=== PATIENT | male | born 1970 ===

== ENCOUNTER 2025-01-05 06:00 | Day surgery (SDC) | payer OTHER ==
[2025-01-02 11:26] LABS: BASO % 0.6 % (0.1-1.2); EOS # 0.06 (0.04-0.54); EOS % 1.0 % (0.7-7.0); LYMPH # 1.91 (1.18-3.74); LYMPH % 30.6 % (19.3-53.1); MEAN PLATELET VOLUME 9.60 fl (9.4-12.4); MONO # 0.53 (0.24-0.82); MONO % 8.5 % (4.7-12.5); NEUT # 3.68 (1.56-6.13); NEUT % 59.0 % (34.0-71.1); RED CELL DISTRIBUTION WIDTH 12.3 % (11.6-14.4)
[2025-01-02 11:27] LABS: URINE APPEARANCE Clear; URINE BILIRRUBIN Negative (NEGATIVE); URINE BLOOD Negative; URINE COLOR Yellow; URINE KETONE Negative (NEGATIVE); URINE LEUKOCYTE Negative; URINE NITRATE Negative; URINE PROTEIN Negative (NEGATIVE); URINE UROBILINOGEN 0.2 E.U./dl
[2025-01-02 11:30] LABS: URINE BACTERIA 10.7 uL (0.0-1933); URINE EPITHELIAL CELLS 2.3 uL (0.0-38.8); URINE RBC 2.6 uL (0.0-20.8)
[2025-01-02 11:39] LABS: URINE CAST 0.00 uL (0.0-1.40); URINE GLUCOSE >=1000 MG/DL (NEGATIVE); URINE WBC 1.6 uL (0.0-23.2)
[2025-01-02 11:50] LABS: INR 0.99
[2025-01-02 12:08] LABS: BUN CREA RATIO 15.0 (7.0-25.0); CREATININE SERUM 0.94 mg/dL (0.70-1.30); GFR 83.02; GLUCOSE FASTING 114.0 mg/dL (65-100); OSMOLALITY SERUM 286.0 MOSM/KG (275-295)
[~2025-01-05 06:00] MED LIST: AMLODIPINE BESYL5 MG PO; ATACAND HCT 321 EAC1 PO; ATORVASTATIN CA10 MG PO; TADALAFIL10 MG PO; TRIJARDY XR 251 EACH PO; ZETIA10 MG PO
[2025-01-05] MEDS ORDERED: CEFAZOLIN SODIUM 1,000 MG VIAL ONE ×2 (07:05→07:15)
[2025-01-05] MEDS ORDERED: BUPIVACAINE HCL/MPF 0.5% 30ML VIAL ONE (07:14)
[2025-01-05] MEDS ORDERED: TRAMADOL HCL50 MG PO (07:52)
[2025-01-05] MEDS ORDERED: MIRALAX17 GM PO (07:52)
[2025-01-05] MEDS ORDERED: KETO10TA2 PO (07:52)
[2025-01-05] MEDS ORDERED: TYLENOL ARTHRI650 MG PO (07:52)
[2025-01-05] MEDS ORDERED: CEFAZOLIN SODIUM 1,000 MG VIAL IV ONE (08:15)
[2025-01-05] MEDS ORDERED: SUGAMMADEX SODIUM 200 MG/2 ML VIAL IV ONE ×2 (08:17→09:00)
[2025-01-05] MEDS ORDERED: BUPIVACAINE HCL 30 ML VIAL IJ ONE (08:30)
[2025-01-05] MEDS ORDERED: KETOROLAC TROMETHAMINE 30 MG VIAL ONE (08:44)
[2025-01-05] MEDS ORDERED: KETOROLAC TROMETHAMINE 30 MG VIAL IM ONE (09:00)
[2025-01-05] MEDS ORDERED: NEURONTIN300 MG PO (09:09)
== END 2025-01-05 11:45 | disposition home or self-care (01) ==
LOC: CIR.AMB 06:00
PROVIDERS: ATTEND Surgery
DX: K42.0 Umbilical hernia with obstruction, without gangrene (principal)
CPT/HCPCS: 49594; C1781